=== PATIENT | female | born 1975 | race Asian ===

== ENCOUNTER 2017-09-20 13:47 | Emergency (ER) | payer MEDICAID, OTHER ==
[~2017-09-20] VITALS: Ht 154.9 cm; Wt 73.0 kg
[2017-09-20] MEDS ORDERED: ACETAMINOPHEN 325MG TABLET PO PRN (14:45)
[2017-09-20 16:04] LABS: CLARITY URINE CLEAR (CLEAR); COLOR URINE YELLOW (YELLOW); GLUCOSE URINE 3+ (NEGATIVE); KETONES URINE 1+ (NEGATIVE); LEUKOCYTE ESTERASE URINE NEGATIVE (NEGATIVE); NITRITE URINE NEGATIVE (NEGATIVE); OCCULT BLOOD URINE NEGATIVE (NEGATIVE); PH URINE 6.5 (4.5-8.0); PROTEIN URINE NEGATIVE (NEGATIVE); SPECIFIC GRAVITY URINE 1.016 (1.005-1.030); UROBILINOGEN URINE 0.2 E.U./dL (0.2-1.0)
[2017-09-20 16:33] LABS: BASOPHILS % 0.1 % (0.0-2.0); EOSINOPHILS % 1.6 % (0.0-5.0); HEMATOCRIT. 34.1 % (36.0-48.0); HEMOGLOBIN. 11.4 g/dL (12.0-16.0); MEAN CORPUSCULAR HEMOGLOBIN 26.4 pg (28.0-32.0); MEAN CORPUSCULAR VOLUME 78.9 fL (81.0-99.0); MEAN PLATELET VOLUME 10.4 fl (7.4-10.4); NEUTROPHILS % 71.3 % (40.0-76.0); PLATELET 172 x1000/uL (130-400); RED BLOOD CELL COUNT 4.32 mill/uL (4.2-5.4); RED CELL DISTRIBUTION WIDTH 14.9 % (11.6-14.6)
[2017-09-20 16:36] LABS: CHLORIDE 105 mEq/L (98-107)
[2017-09-20 16:42] LABS: CARBON DIOXIDE 25 mEq/L (21-32)
[2017-09-20 16:59] LABS: B-HCG QUANTITATIVE 18705 mIU/mL (<3)
[2017-09-20 18:30] VITALS: BP 111/58
== END 2017-09-20 19:31 | disposition home or self-care (01) ==
LOC: ER 14:16
DX: O26.892 Other specified pregnancy related conditions, second trimester (principal); R10.9 Unspecified abdominal pain; Z3A.18 18 weeks gestation of pregnancy
CPT/HCPCS: 36415; 76805; 80053; 81001; 81025; 84702; 85025; 86850; 86900; 86901; 99285; Z7610

== ENCOUNTER 2018-02-16 22:01 | Observation (INO) | payer MEDICAID ==
[~2018-02-16] VITALS: Ht 154.9 cm; Wt 78.0 kg
[~2018-02-16 22:01] MED LIST: PNV1TABL76 PO
[2018-02-16] MEDS ORDERED: FOLI-43 PO (23:00)
[2018-02-16] MEDS ORDERED: CALC-1042 PO (23:01)
== END 2018-02-16 23:15 | disposition home or self-care (01) ==
LOC: L&D 22:01
PROVIDERS: ADMIT Obstetrics & Gynecology; ATTEND Obstetrics & Gynecology
DX: Z34.93 Encounter for supervision of normal pregnancy, unspecified, third trimester (principal); Z3A.39 39 weeks gestation of pregnancy
CPT/HCPCS: G0378

== ENCOUNTER 2018-08-05 16:02 | Emergency (ER) | payer MEDICAID ==
[~2018-08-05] VITALS: Ht 160 cm; Wt 73.0 kg
[~2018-08-05 16:02] MED LIST changes: +CALC-1042 PO; +FOLI-43 PO
[2018-08-05 16:04] VITALS: BP 125/75
== END 2018-08-05 17:28 | disposition left against medical advice (07) ==
LOC: ER 16:02
DX: Z53.21 Procedure and treatment not carried out due to patient leaving prior to being seen by health care provider (principal)